=== PATIENT | female | born 1960 | race Caucasian/White ===

== ENCOUNTER 2021-09-04 06:12 | Inpatient (IN) ==
[~2021-09-04 06:12] MED LIST: Aspirin 81 MG TAB.CHEW PO ONE; Buckersberg's Blood Cardioplegia PF SCH; Heparin 15,000 UNIT in 0.9 % Sodium Chloride 500 ML IV ONE; Norepinephrine 4 MG in 0.9 % Sodium Chloride 250 ML IVC PRN; del Nido Cardioplegia Solution PF ONE; del Nido Cardioplegia Solution PF SCH
[2021-09-04] MEDS ORDERED: NiCARdipine 2.5 MG/10 ML Syringe IVPB ONE (06:21)
[2021-09-04] MEDS ORDERED: Chlorhexidine Rinse 15 ML MOUTHWASH MM SCH (06:24)
[2021-09-04] MEDS ORDERED: CeFAZolin Syr 2,000MG/20 ML 2,000 MG/20 ML SYRINGE IVPB ONE (06:24)
[2021-09-04] MEDS ORDERED: *HR* Rocuronium Bromide 50 MG/5 ML VIAL ONE (06:26)
[2021-09-04] MEDS ORDERED: niCARdipine 20 MG/200 ML MLS IVC ONE (06:26)
[2021-09-04] MEDS ORDERED: EPINEPHrine 1 MG/ML VIAL ONE (06:27)
[2021-09-04] MEDS ORDERED: Tranexamic Acid 1,000 MG/10 ML VIAL ONE (06:27)
[2021-09-04] MEDS ORDERED: *HR* Etomidate 20 MG/10 ML AMPUL IVP ONE (06:27)
[2021-09-04] MEDS ORDERED: Protamine Sulfate 250 MG/25 ML VIAL IVP ONE (06:27)
[2021-09-04] MEDS ORDERED: *HR* FentaNYL (PF) 1,000 MCG/20 ML VIAL ONE (06:28)
[2021-09-04] MEDS ORDERED: *HR* Midazolam HCl 5 MG/5 ML VIAL IVP ONE (06:28)
[2021-09-04] MEDS ORDERED: Ringers Solution, Lactated 1,000 ML IVC SCH (06:30)
[2021-09-04] MEDS ORDERED: Papaverine 60 MG/2 ML VIAL IVP ONE (06:31)
[2021-09-04 08:21] LABS: ABG Base Excess 2 mEq/L (-2 to 3); ABG Chloride 105 mEq/L (98-107); ABG Glucose 113 mg/dL (60-95); ABG HCO3 30 mEq/L (21-27); ABG Ionized Calcium 1.21 mmol/L (1.15-1.35); ABG Oxygen Saturation 100 % (95-98); ABG PCO2 61 mmHg (35-45); ABG PO2 377 mmHg (85-104); ABG TCO2 32 mEq/L (20-26)
[2021-09-04 08:49] LABS: ABG Base Excess 1 mEq/L (-2 to 3); ABG Chloride 105 mEq/L (98-107); ABG Glucose 120 mg/dL (60-95); ABG HCO3 24 mEq/L (21-27); ABG Oxygen Saturation 100 % (95-98); ABG PCO2 34 mmHg (35-45); ABG PH 7.46 pH Units (7.32-7.45); ABG PO2 264 mmHg (85-104); ABG TCO2 26 mEq/L (20-26)
[2021-09-04 09:22] LABS: ABG Base Excess 1 mEq/L (-2 to 3); ABG Chloride 101 mEq/L (98-107); ABG Glucose 164 mg/dL (60-95); ABG HCO3 25 mEq/L (21-27); ABG Ionized Calcium 0.96 mmol/L (1.15-1.35); ABG Oxygen Saturation 100 % (95-98); ABG PCO2 34 mmHg (35-45); ABG PH 7.47 pH Units (7.32-7.45); ABG PO2 600 mmHg (85-104); ABG TCO2 26 mEq/L (20-26)
[2021-09-04 09:38] LABS: ABG Base Excess -1 mEq/L (-2 to 3); ABG Chloride 100 mEq/L (98-107); ABG Glucose 136 mg/dL (60-95); ABG HCO3 23 mEq/L (21-27); ABG Ionized Calcium 0.92 mmol/L (1.15-1.35); ABG PCO2 32 mmHg (35-45); ABG PH 7.45 pH Units (7.32-7.45); ABG PO2 > 630 mmHg (85-104); ABG TCO2 24 mEq/L (20-26)
[2021-09-04 09:47] LABS: ABG Base Excess 0 mEq/L (-2 to 3); ABG Chloride 101 mEq/L (98-107); ABG Glucose 185 mg/dL (60-95); ABG HCO3 24 mEq/L (21-27); ABG Ionized Calcium 1.01 mmol/L (1.15-1.35); ABG Oxygen Saturation 100 % (95-98); ABG PCO2 38 mmHg (35-45); ABG PH 7.42 pH Units (7.32-7.45); ABG PO2 538 mmHg (85-104); ABG TCO2 26 mEq/L (20-26)
[2021-09-04 10:13] LABS: ABG Base Excess -1 mEq/L (-2 to 3); ABG Chloride 102 mEq/L (98-107); ABG Glucose 173 mg/dL (60-95); ABG HCO3 24 mEq/L (21-27); ABG Ionized Calcium 0.97 mmol/L (1.15-1.35); ABG Oxygen Saturation 100 % (95-98); ABG PCO2 39 mmHg (35-45); ABG PO2 597 mmHg (85-104); ABG TCO2 26 mEq/L (20-26)
[2021-09-04 10:47] LABS: ABG Base Excess -1 mEq/L (-2 to 3); ABG Chloride 103 mEq/L (98-107); ABG Glucose 164 mg/dL (60-95); ABG HCO3 23 mEq/L (21-27); ABG Ionized Calcium 1.73 mmol/L (1.15-1.35); ABG Oxygen Saturation 100 % (95-98); ABG PCO2 34 mmHg (35-45); ABG PH 7.43 pH Units (7.32-7.45); ABG PO2 573 mmHg (85-104); ABG TCO2 24 mEq/L (20-26)
[2021-09-04] MEDS ORDERED: Protamine Sulfate 50 MG/5 ML VIAL IVP ONE (10:50)
[2021-09-04] MEDS ORDERED: Amiodarone Premix 360 MG/200 ML BAG IVC ONE (11:43)
[2021-09-04] MEDS ORDERED: Potassium Chloride 40 MEQ/200 ML BAG IVPB PRN (11:43)
[2021-09-04] MEDS ORDERED: *HR* Dextrose 50 % in Water (Syg) 50 ML SYRINGE IVP PRN (11:43)
[2021-09-04] MEDS ORDERED: Calcium Gluconate 1gm/50mL 1 GM/50 ML BAG IVPB PRN (11:43)
[2021-09-04] MEDS ORDERED: Acetaminophen 325 MG TABLET PO PRN (11:43)
[2021-09-04] MEDS ORDERED: Insulin Regular, Human 100 UNIT/ML IV PRN (11:43)
[2021-09-04] MEDS ORDERED: Ondansetron 4 MG/2 ML VIAL IVP PRN (11:43)
[2021-09-04] MEDS ORDERED: Naloxone 0.4 MG/ML INJ IVP PRN (11:43)
[2021-09-04 12:12] LABS: ABG Base Excess -1 mEq/L (-2 to 3); ABG HCO3 23 mEq/L (21-27); ABG Oxygen Saturation 97 % (95-98); ABG PCO2 35 mmHg (35-45); ABG PH 7.42 pH Units (7.32-7.45); ABG PO2 90 mmHg (85-104); ABG TCO2 24 mEq/L (20-26); Blood Gas VT 450 cc
[2021-09-04 12:14] LABS: ABG Base Excess -3 mEq/L (-2 to 3); ABG Chloride 104 mEq/L (98-107); ABG Glucose 172 mg/dL (60-95); ABG HCO3 21 mEq/L (21-27); ABG Ionized Calcium 1.32 mmol/L (1.15-1.35); ABG Oxygen Saturation 100 % (95-98); ABG PCO2 32 mmHg (35-45); ABG PH 7.43 pH Units (7.32-7.45); ABG PO2 190 mmHg (85-104); ABG TCO2 22 mEq/L (20-26)
[2021-09-04 12:18] LABS: Basophils # 0.1 K/mcL (0.0-0.2); Basophils % 0.4 %; Eosinophils % 4.9 %; Hematocrit 33.7 % (35.3-44.9); Hemoglobin 11.3 g/dL (11.5-15.4); Immature Granulocytes % 0.6 % (0-4); Lymphocytes # 2.3 K/mcL (0.6-4.6); Lymphocytes % 11.1 %; Mean Corpuscular HGB Conc 33.5 g/dL (31.6-35.5); Mean Corpuscular Hemoglobin 28.8 pg (28.0-33.3); Monocytes # 0.8 K/mcL (0.0-1.3); Platelet Count 141 K/mcL (140-400); Red Blood Count 3.92 M/mcL (3.82-4.97); Red Cell Distribution Width 13.3 % (11.5-14.5)
[2021-09-04 12:25] LABS: White Blood Count 20.3 K/mcL (4.3-11.1)
[2021-09-04 12:26] LABS: INR 1.3; Prothrombin Time 14.9 Seconds (9.4-12.1)
[2021-09-04 12:29] LABS: Activated Partial Thrombo Time 29.7 Seconds (26.0-36.0)
[2021-09-04 12:38] LABS: BUN/Creatinine Ratio 14 (6-26); Blood Urea Nitrogen 10 mg/dL (6-20); Calcium 8.8 mg/dL (8.6-10.3); Carbon Dioxide 24 mEq/L (23-29); Chloride 108 mEq/L (98-107); Glucose 120 mg/dL (70-105); Osmolality,Calculated 290 (280-300); Potassium 3.1 mEq/L (3.5-5.1); Sodium 140 mEq/L (136-145); eGFR For African Americans > 60 (> 60); eGFR For Non-African Americans > 60 (> 60)
[2021-09-04] MEDS ORDERED: *HR* Phenylephrine 10 MG/ML VIAL IVC ONE (12:43)
[2021-09-04] MEDS ORDERED: Albumin Human 25% 25 GM/100 ML IV.SOLN IVPB ONE (12:43)
[2021-09-04] MEDS ORDERED: Lidocaine 2% Syringe 100 MG/5 ML IVP ONE (12:43)
[2021-09-04] MEDS ORDERED: D5% in Water 250 ML IV BAG IV ONE (12:43)
[2021-09-04] MEDS ORDERED: Tranexamic Acid 1,000 MG/10 ML VIAL IR ONE (12:43)
[2021-09-04] MEDS ORDERED: Heparin 1,000 UNITS/500 mL IV.SOLN IR ONE (12:43)
[2021-09-04] MEDS ORDERED: *HR* Heparin 10,000 UNIT/10 ML VIAL IR ONE (12:43)
[2021-09-04] MEDS ORDERED: Mannitol 25% vial 12.5 GM/50 ML VIAL IVPB ONE (12:43)
[2021-09-04] MEDS ORDERED: *HR* Magnesium Sulfate 2 GM/50 ML PIGGYBACK IVPB ONE (12:43)
[2021-09-04] MEDS ORDERED: *HR* Metoprolol 5 MG/5 ML VIAL IVP ONE (13:10)
[2021-09-04] MEDS: Pantoprazole 40 MG VIAL IVP SCH (13:17)
[2021-09-04] MEDS: *HR* FentaNYL (PF) 100 MCG/2 ML VIAL IVP PRN ×5 (13:36→23:03)
[2021-09-04] MEDS: Norepinephrine 4 MG/254 ML IV.SOLN IVC SCH ×6 (16:00→22:55)
[2021-09-04] MEDS: Albumin Human 5% 12.5 GM/250 ML IV.SOLN IVPB PRN ×5 (16:01→21:18)
[2021-09-04] MEDS: CeFAZolin 2 GM/120 ML BAG IVPB SCH ×2 (16:43→23:43)
[2021-09-04 16:53] LABS: ABG Base Excess -2 mEq/L (-2 to 3); ABG HCO3 25 mEq/L (21-27); ABG Oxygen Saturation 96 % (95-98); ABG PCO2 52 mmHg (35-45); ABG PH 7.29 pH Units (7.32-7.45); ABG PO2 96 mmHg (85-104); ABG TCO2 27 mEq/L (20-26); Blood Gas VT 450 cc
[2021-09-04] MEDS ORDERED: Amiodarone Premix 360 MG/200 ML BAG IVC SCH (17:09)
[2021-09-04 17:57] LABS: ABG Base Excess -2 mEq/L (-2 to 3); ABG HCO3 23 mEq/L (21-27); ABG Oxygen Saturation 100 % (95-98); ABG PCO2 36 mmHg (35-45); ABG PH 7.41 pH Units (7.32-7.45); ABG PO2 193 mmHg (85-104); ABG TCO2 24 mEq/L (20-26); Blood Gas VT 500 cc
[2021-09-04] MEDS ORDERED: Ipratropium/Albuterol Neb 3 ML IH PRN (18:14)
[2021-09-04 18:55] LABS: ABG Base Excess -1 mEq/L (-2 to 3); ABG HCO3 24 mEq/L (21-27); ABG Oxygen Saturation 98 % (95-98); ABG PCO2 44 mmHg (35-45); ABG PH 7.35 pH Units (7.32-7.45); ABG PO2 114 mmHg (85-104); ABG TCO2 26 mEq/L (20-26); Blood Gas Modality CPAP/PS; Blood Gas Pressure Support 10 cm H2O
[2021-09-04] MEDS: DOBUTamine 1,000 MG/250 ML BAG IVC SCH (19:39)
[2021-09-04] MEDS: niCARdipine 20 MG/200 ML MLS IVC SCH ×2 (19:39→19:53)
[2021-09-04 19:52] LABS: ABG Base Excess -1 mEq/L (-2 to 3); ABG HCO3 25 mEq/L (21-27); ABG Oxygen Saturation 92 % (95-98); ABG PCO2 45 mmHg (35-45); ABG PH 7.35 pH Units (7.32-7.45); ABG PO2 68 mmHg (85-104); ABG TCO2 26 mEq/L (20-26)
[2021-09-04] MEDS: *HR* OxyCODONE/APAP 5/325 TABLET PO PRN (20:54)
[2021-09-04] MEDS: Ipratropium/Albuterol Neb 3 ML IH SCH ×2 (21:15→23:27)
[2021-09-04] MEDS: Chlorhexidine Rinse 15 ML MOUTHWASH MM SCH (21:23)
[2021-09-05] MEDS: Norepinephrine 4 MG/254 ML IV.SOLN IVC SCH ×12 (00:20→22:04)
[2021-09-05] MEDS: *HR* OxyCODONE/APAP 5/325 TABLET PO PRN ×3 (01:13→19:42)
[2021-09-05] MEDS: Ipratropium/Albuterol Neb 3 ML IH SCH ×5 (03:51→20:29)
[2021-09-05 04:29] LABS: Basophils % 0.3 %; Eosinophils # 0.2 K/mcL (0.0-0.6); Eosinophils % 1.4 %; Hematocrit 29.3 % (35.3-44.9); Immature Granulocytes % 0.5 % (0-4); Lymphocytes # 1.7 K/mcL (0.6-4.6); Lymphocytes % 12.2 %; Mean Corpuscular HGB Conc 31.4 g/dL (31.6-35.5); Mean Corpuscular Hemoglobin 28.8 pg (28.0-33.3); Mean Corpuscular Volume 91.8 fL (83.0-100.0); Monocytes # 1.4 K/mcL (0.0-1.3); Monocytes % 9.7 %; Neutrophils # 10.5 K/mcL (1.6-8.9); Platelet Count 164 K/mcL (140-400); Red Blood Count 3.19 M/mcL (3.82-4.97); Red Cell Distribution Width 14.2 % (11.5-14.5); Segmented Neutrophils % 75.9 %; White Blood Count 13.9 K/mcL (4.3-11.1)
[2021-09-05 04:30] LABS: Hemoglobin 9.2 g/dL (11.5-15.4)
[2021-09-05] MEDS: niCARdipine 20 MG/200 ML MLS IVC SCH ×2 (04:43→11:14)
[2021-09-05 04:44] LABS: INR 1.4; Prothrombin Time 15.3 Seconds (9.4-12.1)
[2021-09-05 04:47] LABS: Activated Partial Thrombo Time 31.8 Seconds (26.0-36.0)
[2021-09-05 05:09] LABS: BUN/Creatinine Ratio 13 (6-26); Blood Urea Nitrogen 13 mg/dL (6-20); Calcium 8.3 mg/dL (8.6-10.3); Carbon Dioxide 24 mEq/L (23-29); Chloride 110 mEq/L (98-107); Glucose 135 mg/dL (70-105); Magnesium 2.5 mg/dL (1.6-2.6); Osmolality,Calculated 296 (280-300); Potassium 3.7 mEq/L (3.5-5.1); Sodium 142 mEq/L (136-145); eGFR For African Americans > 60 (> 60); eGFR For Non-African Americans 59 (> 60)
[2021-09-05] MEDS ORDERED: *HR* Heparin 5,000 UNIT/ML VIAL SQ SCH (06:00)
[2021-09-05] MEDS: Chlorhexidine Rinse 15 ML MOUTHWASH MM SCH ×2 (07:33→19:42)
[2021-09-05] MEDS: Pantoprazole 40 MG VIAL IVP SCH (08:14)
[2021-09-05] MEDS: CeFAZolin 2 GM/120 ML BAG IVPB SCH ×2 (08:20→19:02)
[2021-09-05] MEDS ORDERED: Furosemide 40 MG/4 ML VIAL IVP ONE (08:25)
[2021-09-05] MEDS ORDERED: Ketorolac 30 MG/ML VIAL IVP PRN ×2 (08:46→12:30)
[2021-09-05] MEDS ORDERED: Aspirin Enteric Coated 81 MG Tablet PO SCH (09:00)
[2021-09-05] MEDS: DOBUTamine 1,000 MG/250 ML BAG IVC SCH ×2 (11:14→13:11)
[2021-09-05] MEDS ORDERED: Albumin Human 5% 12.5 GM/250 ML IV.SOLN IVPB PRN (12:30)
[2021-09-05] MEDS ORDERED: Naloxone 0.4 MG/ML INJ IVP PRN (12:30)
[2021-09-05] MEDS ORDERED: Acetaminophen 325 MG TABLET PO PRN (12:30)
[2021-09-05] MEDS ORDERED: Ipratropium/Albuterol Neb 3 ML IH PRN (12:30)
[2021-09-05] MEDS ORDERED: *HR* Dextrose 50 % in Water (Syg) 50 ML SYRINGE IVP PRN (12:30)
[2021-09-05] MEDS ORDERED: Insulin Regular, Human 100 UNIT/ML IV PRN (12:30)
[2021-09-05] MEDS ORDERED: Ondansetron 4 MG/2 ML VIAL IVP PRN (12:30)
[2021-09-05] MEDS ORDERED: Calcium Gluconate 1gm/50mL 1 GM/50 ML BAG IVPB PRN (12:30)
[2021-09-05] MEDS ORDERED: Heparin 1,000 UNITS/500 mL 500 ML ONE (15:21)
[2021-09-05] MEDS: *HR* Heparin 5,000 UNIT/ML VIAL SQ SCH (19:02)
[2021-09-06] MEDS: CeFAZolin 2 GM/120 ML BAG IVPB SCH ×3 (00:10→16:22)
[2021-09-06] MEDS: Ipratropium/Albuterol Neb 3 ML IH SCH ×7 (00:29→23:57)
[2021-09-06] MEDS: *HR* OxyCODONE/APAP 5/325 TABLET PO PRN ×3 (02:48→12:36)
[2021-09-06 05:00] LABS: Basophils # 0.1 K/mcL (0.0-0.2); Basophils % 0.3 %; Eosinophils # 0.2 K/mcL (0.0-0.6); Hematocrit 26.8 % (35.3-44.9); Hemoglobin 8.7 g/dL (11.5-15.4); Immature Granulocytes % 0.7 % (0-4); Lymphocytes # 1.7 K/mcL (0.6-4.6); Lymphocytes % 7.9 %; Mean Corpuscular HGB Conc 32.5 g/dL (31.6-35.5); Mean Corpuscular Hemoglobin 29.1 pg (28.0-33.3); Mean Corpuscular Volume 89.6 fL (83.0-100.0); Mean Platelet Volume 9.8 fL (9.4-12.4); Monocytes # 1.4 K/mcL (0.0-1.3); Monocytes % 6.5 %; Platelet Count 188 K/mcL (140-400); Red Blood Count 2.99 M/mcL (3.82-4.97); Red Cell Distribution Width 14.5 % (11.5-14.5); Segmented Neutrophils % 83.6 %
[2021-09-06 05:01] LABS: Neutrophils # 17.6 K/mcL (1.6-8.9)
[2021-09-06 05:29] LABS: BUN/Creatinine Ratio 18 (6-26); Blood Urea Nitrogen 15 mg/dL (6-20); Calcium 8.6 mg/dL (8.6-10.3); Carbon Dioxide 23 mEq/L (23-29); Chloride 106 mEq/L (98-107); Glucose 136 mg/dL (70-105); Osmolality,Calculated 291 (280-300); Potassium 3.4 mEq/L (3.5-5.1); Sodium 139 mEq/L (136-145); eGFR For African Americans > 60 (> 60); eGFR For Non-African Americans > 60 (> 60)
[2021-09-06] MEDS: Norepinephrine 4 MG/254 ML IV.SOLN IVC SCH ×2 (05:51→13:38)
[2021-09-06] MEDS: *HR* Heparin 5,000 UNIT/ML VIAL SQ SCH ×2 (05:51→16:21)
[2021-09-06] MEDS: Aspirin Enteric Coated 81 MG Tablet PO SCH (08:16)
[2021-09-06] MEDS: Chlorhexidine Rinse 15 ML MOUTHWASH MM SCH ×2 (08:17→21:08)
[2021-09-06] MEDS ORDERED: Gabapentin 100 MG CAPSULE PO ONE (08:57)
[2021-09-06] MEDS ORDERED: Pantoprazole 40 MG VIAL IVP SCH (09:00)
[2021-09-06] MEDS: DOBUTamine 1,000 MG/250 ML BAG IVC SCH (11:30)
[2021-09-06] MEDS: Furosemide 40 MG/4 ML VIAL IVP SCH (13:39)
[2021-09-06] MEDS: Gabapentin 100 MG CAPSULE PO SCH ×2 (15:21→21:07)
[2021-09-06] MEDS: Budesonide/Formoterol 160/4.5 1 PUFF INH IH SCH (20:33)
[2021-09-07 03:54] LABS: Basophils # 0.1 K/mcL (0.0-0.2); Basophils % 0.4 %; Eosinophils # 0.2 K/mcL (0.0-0.6); Hematocrit 23.8 % (35.3-44.9); Hemoglobin 7.7 g/dL (11.5-15.4); Immature Granulocytes % 1.3 % (0-4); Lymphocytes # 2.3 K/mcL (0.6-4.6); Lymphocytes % 12.9 %; Mean Corpuscular HGB Conc 32.4 g/dL (31.6-35.5); Mean Corpuscular Hemoglobin 29.6 pg (28.0-33.3); Mean Corpuscular Volume 91.5 fL (83.0-100.0); Mean Platelet Volume 10.4 fL (9.4-12.4); Monocytes % 5.6 %; Neutrophils # 14.3 K/mcL (1.6-8.9); Nucleated Red Blood Cells 0.2 /100 WBC (0); Platelet Count 192 K/mcL (140-400); Red Cell Distribution Width 14.7 % (11.5-14.5); Segmented Neutrophils % 78.8 %; White Blood Count 18.2 K/mcL (4.3-11.1)
[2021-09-07] MEDS: Ipratropium/Albuterol Neb 3 ML IH SCH ×6 (04:03→23:31)
[2021-09-07 04:14] LABS: BUN/Creatinine Ratio 23 (6-26); Blood Urea Nitrogen 21 mg/dL (6-20); Calcium 8.5 mg/dL (8.6-10.3); Carbon Dioxide 27 mEq/L (23-29); Chloride 101 mEq/L (98-107); Glucose 132 mg/dL (70-105); Osmolality,Calculated 283 (280-300); Potassium 3.9 mEq/L (3.5-5.1); Sodium 134 mEq/L (136-145); eGFR For African Americans > 60 (> 60); eGFR For Non-African Americans > 60 (> 60)
[2021-09-07 04:36] LABS: Ferritin 222 ng/mL (10-120); Iron < 10 mcg/dL (50-170); Magnesium 2.3 mg/dL (1.6-2.6); Phosphorous 2.7 mg/dL (2.7-4.5); Transferrin 181 mg/dL (203-362)
[2021-09-07 04:52] LABS: Folate 13.7 ng/mL (3.0-16.0)
[2021-09-07] MEDS: *HR* Heparin 5,000 UNIT/ML VIAL SQ SCH ×3 (05:18→21:45)
[2021-09-07] MEDS: *HR* OxyCODONE/APAP 5/325 TABLET PO PRN ×2 (07:12→14:16)
[2021-09-07] MEDS ORDERED: Iron Sucrose Complex 400 MG in 0.9 % Sodium Chloride 250 ML IVPB ONE (07:14)
[2021-09-07] MEDS: Budesonide/Formoterol 160/4.5 1 PUFF INH IH SCH ×2 (07:42→20:31)
[2021-09-07] MEDS ORDERED: 0.9 % Sodium Chloride 250 ML ONE (08:05)
[2021-09-07] MEDS: Aspirin Enteric Coated 81 MG Tablet PO SCH (08:08)
[2021-09-07] MEDS: Multivit/Ca/Min/Fe/FA 1 TAB TABLET PO SCH (08:08)
[2021-09-07] MEDS: Gabapentin 100 MG CAPSULE PO SCH ×3 (08:08→23:07)
[2021-09-07] MEDS: Chlorhexidine Rinse 15 ML MOUTHWASH MM SCH ×2 (08:09→23:06)
[2021-09-07] MEDS: Calcium Gluconate 1gm/50mL 1 GM/50 ML BAG IVPB SCH ×2 (10:26→11:30)
[2021-09-07] MEDS: Furosemide 40 MG/4 ML VIAL IVP SCH ×3 (10:27→23:07)
[2021-09-07] MEDS: DOBUTamine 1,000 MG/250 ML BAG IVC SCH (11:31)
[2021-09-07] MEDS: Norepinephrine 4 MG/254 ML IV.SOLN IVC SCH (11:32)
[2021-09-07 13:50] LABS: Hematocrit 29.2 % (35.3-44.9)
[2021-09-07 13:51] LABS: Hemoglobin 9.5 g/dL (11.5-15.4)
[2021-09-07] MEDS ORDERED: Furosemide 40 MG/4 ML VIAL IVP ONE (15:00)
[2021-09-07] MEDS ORDERED: Perflutren Lipid Microsphere 1.3 ML in 0.9 % Sodium Chloride 8.7 ML IVP PRN (15:04)
[2021-09-07] MEDS ORDERED: MethylPREDNISolone 40 MG/ML VIAL IVP ONE (15:11)
[2021-09-07] MEDS ORDERED: methylPREDNISolone 125 MG/2 ML VIAL IVP ONE (15:13)
[2021-09-07 15:21] LABS: ABG Base Excess 2 mEq/L (-2 to 3); ABG HCO3 27 mEq/L (21-27); ABG Oxygen Saturation 67 % (95-98); ABG PCO2 44 mmHg (35-45); ABG PO2 35 mmHg (85-104); ABG TCO2 29 mEq/L (20-26)
[2021-09-07 21:17] LABS: ABG Base Excess 2 mEq/L (-2 to 3); ABG HCO3 26 mEq/L (21-27); ABG Oxygen Saturation 97 % (95-98); ABG PCO2 39 mmHg (35-45); ABG PH 7.44 pH Units (7.32-7.45); ABG PO2 91 mmHg (85-104); ABG TCO2 28 mEq/L (20-26)
[2021-09-08 03:28] LABS: Basophils % 0.1 %; Hematocrit 27.2 % (35.3-44.9); Hemoglobin 8.8 g/dL (11.5-15.4); Immature Granulocytes % 1.3 % (0-4); Lymphocytes # 1.3 K/mcL (0.6-4.6); Lymphocytes % 8.5 %; Mean Corpuscular HGB Conc 32.4 g/dL (31.6-35.5); Mean Corpuscular Volume 89.8 fL (83.0-100.0); Mean Platelet Volume 10.2 fL (9.4-12.4); Monocytes # 1.2 K/mcL (0.0-1.3); Monocytes % 7.8 %; Neutrophils # 12.9 K/mcL (1.6-8.9); Nucleated Red Blood Cells 0.8 /100 WBC (0); Platelet Count 235 K/mcL (140-400); Red Blood Count 3.03 M/mcL (3.82-4.97); Red Cell Distribution Width 14.4 % (11.5-14.5); Segmented Neutrophils % 82.3 %; White Blood Count 15.7 K/mcL (4.3-11.1)
[2021-09-08 03:47] LABS: BUN/Creatinine Ratio 32 (6-26); Blood Urea Nitrogen 28 mg/dL (6-20); Calcium 8.5 mg/dL (8.6-10.3); Carbon Dioxide 30 mEq/L (23-29); Chloride 100 mEq/L (98-107); Glucose 152 mg/dL (70-105); Osmolality,Calculated 292 (280-300); Potassium 3.7 mEq/L (3.5-5.1); Sodium 137 mEq/L (136-145); eGFR For African Americans > 60 (> 60); eGFR For Non-African Americans > 60 (> 60)
[2021-09-08 03:48] LABS: Magnesium 2.4 mg/dL (1.6-2.6)
[2021-09-08] MEDS: Ipratropium/Albuterol Neb 3 ML IH SCH ×6 (04:34→23:34)
[2021-09-08] MEDS: *HR* Heparin 5,000 UNIT/ML VIAL SQ SCH ×3 (06:11→21:40)
[2021-09-08] MEDS ORDERED: MethylPREDNISolone 40 MG/ML VIAL IVP SCH (08:00)
[2021-09-08] MEDS: Chlorhexidine Rinse 15 ML MOUTHWASH MM SCH ×2 (08:06→19:56)
[2021-09-08] MEDS: Furosemide 40 MG/4 ML VIAL IVP SCH ×2 (08:06→19:59)
[2021-09-08] MEDS: Aspirin Enteric Coated 81 MG Tablet PO SCH (08:06)
[2021-09-08] MEDS: Multivit/Ca/Min/Fe/FA 1 TAB TABLET PO SCH (08:07)
[2021-09-08] MEDS: Gabapentin 100 MG CAPSULE PO SCH ×3 (08:09→19:57)
[2021-09-08] MEDS: Budesonide/Formoterol 160/4.5 1 PUFF INH IH SCH ×2 (08:22→19:47)
[2021-09-08] MEDS: Norepinephrine 4 MG/254 ML IV.SOLN IVC SCH (11:13)
[2021-09-08] MEDS: DOBUTamine 1,000 MG/250 ML BAG IVC SCH (11:13)
[2021-09-08] MEDS ORDERED: Ipratropium/Albuterol Neb 3 ML IH PRN (15:41)
[2021-09-08] MEDS ORDERED: Perflutren Lipid Microsphere 1.3 ML in 0.9 % Sodium Chloride 8.7 ML IVP PRN (15:41)
[2021-09-08] MEDS ORDERED: *HR* Dextrose 50 % in Water (Syg) 50 ML SYRINGE IVP PRN (15:41)
[2021-09-08] MEDS ORDERED: Ondansetron 4 MG/2 ML VIAL IVP PRN (15:41)
[2021-09-08] MEDS ORDERED: Insulin Regular, Human 100 UNIT/ML IV PRN (15:41)
[2021-09-08] MEDS: Acetaminophen 325 MG TABLET PO PRN (19:57)
[2021-09-09 04:08] LABS: Basophils % 0.2 %; Eosinophils % 0.1 %; Hematocrit 27.2 % (35.3-44.9); Hemoglobin 8.7 g/dL (11.5-15.4); Immature Granulocytes % 2.1 % (0-4); Lymphocytes % 12.6 %; Mean Corpuscular Hemoglobin 29.3 pg (28.0-33.3); Mean Corpuscular Volume 91.6 fL (83.0-100.0); Mean Platelet Volume 10.1 fL (9.4-12.4); Monocytes # 1.7 K/mcL (0.0-1.3); Monocytes % 10.2 %; Neutrophils # 12.1 K/mcL (1.6-8.9); Nucleated Red Blood Cells 1.1 /100 WBC (0); Platelet Count 273 K/mcL (140-400); Red Blood Count 2.97 M/mcL (3.82-4.97); Red Cell Distribution Width 14.4 % (11.5-14.5); Segmented Neutrophils % 74.8 %; White Blood Count 16.2 K/mcL (4.3-11.1)
[2021-09-09] MEDS: Ipratropium/Albuterol Neb 3 ML IH SCH ×6 (04:21→23:39)
[2021-09-09 04:23] LABS: BUN/Creatinine Ratio 33 (6-26); Blood Urea Nitrogen 30 mg/dL (6-20); Calcium 8.5 mg/dL (8.6-10.3); Carbon Dioxide 31 mEq/L (23-29); Chloride 101 mEq/L (98-107); Glucose 144 mg/dL (70-105); Magnesium 2.4 mg/dL (1.6-2.6); Osmolality,Calculated 297 (280-300); Potassium 3.1 mEq/L (3.5-5.1); Sodium 139 mEq/L (136-145); eGFR For African Americans > 60 (> 60); eGFR For Non-African Americans > 60 (> 60)
[2021-09-09] MEDS: *HR* Heparin 5,000 UNIT/ML VIAL SQ SCH ×3 (05:24→20:29)
[2021-09-09] MEDS: Aspirin Enteric Coated 81 MG Tablet PO SCH (07:36)
[2021-09-09] MEDS: Multivit/Ca/Min/Fe/FA 1 TAB TABLET PO SCH (07:36)
[2021-09-09] MEDS: Gabapentin 100 MG CAPSULE PO SCH ×3 (07:36→20:30)
[2021-09-09] MEDS: Chlorhexidine Rinse 15 ML MOUTHWASH MM SCH ×2 (07:37→20:29)
[2021-09-09] MEDS: Furosemide 40 MG/4 ML VIAL IVP SCH ×2 (07:38→20:29)
[2021-09-09] MEDS: Budesonide/Formoterol 160/4.5 1 PUFF INH IH SCH ×2 (08:15→19:56)
[2021-09-09] MEDS ORDERED: MethylPREDNISolone 40 MG/ML VIAL IVP SCH ×2 (09:00)
[2021-09-09] MEDS: Potassium Chloride Elixir 20 MEQ/15 ML UDC PO SCH ×2 (12:07→20:28)
[2021-09-10] MEDS: Ipratropium/Albuterol Neb 3 ML IH SCH ×6 (04:08→23:32)
[2021-09-10 04:19] LABS: Basophils % 0.2 %; Eosinophils # 0.1 K/mcL (0.0-0.6); Eosinophils % 0.3 %; Hematocrit 28.7 % (35.3-44.9); Hemoglobin 8.9 g/dL (11.5-15.4); Immature Granulocytes % 2.5 % (0-4); Lymphocytes # 2.6 K/mcL (0.6-4.6); Mean Corpuscular Volume 93.5 fL (83.0-100.0); Monocytes # 1.8 K/mcL (0.0-1.3); Monocytes % 12.1 %; Neutrophils # 10.3 K/mcL (1.6-8.9); Nucleated Red Blood Cells 1.3 /100 WBC (0); Platelet Count 322 K/mcL (140-400); Red Blood Count 3.07 M/mcL (3.82-4.97); Red Cell Distribution Width 14.5 % (11.5-14.5); Segmented Neutrophils % 67.9 %; White Blood Count 15.2 K/mcL (4.3-11.1)
[2021-09-10 04:36] LABS: BUN/Creatinine Ratio 30 (6-26); Blood Urea Nitrogen 22 mg/dL (6-20); Calcium 7.3 mg/dL (8.6-10.3); Carbon Dioxide 27 mEq/L (23-29); Chloride 106 mEq/L (98-107); Glucose 96 mg/dL (70-105); Osmolality,Calculated 293 (280-300); Potassium 3.7 mEq/L (3.5-5.1); Sodium 140 mEq/L (136-145); eGFR For African Americans > 60 (> 60); eGFR For Non-African Americans > 60 (> 60)
[2021-09-10] MEDS: *HR* Heparin 5,000 UNIT/ML VIAL SQ SCH ×3 (05:58→20:49)
[2021-09-10] MEDS: Budesonide/Formoterol 160/4.5 1 PUFF INH IH SCH ×2 (08:13→19:46)
[2021-09-10] MEDS: Gabapentin 100 MG CAPSULE PO SCH ×3 (08:57→19:49)
[2021-09-10] MEDS: Multivit/Ca/Min/Fe/FA 1 TAB TABLET PO SCH (08:58)
[2021-09-10] MEDS: predniSONE 20 MG TABLET PO SCH (08:58)
[2021-09-10] MEDS: Aspirin Enteric Coated 81 MG Tablet PO SCH (08:58)
[2021-09-10] MEDS: Potassium Chloride Elixir 20 MEQ/15 ML UDC PO SCH ×2 (08:58→19:51)
[2021-09-10] MEDS: Chlorhexidine Rinse 15 ML MOUTHWASH MM SCH ×2 (08:59→19:51)
[2021-09-10] MEDS: Furosemide 40 MG/4 ML VIAL IVP SCH ×2 (08:59→19:50)
[2021-09-11] MEDS: Acetaminophen 325 MG TABLET PO PRN (00:12)
[2021-09-11] MEDS: Ipratropium/Albuterol Neb 3 ML IH SCH ×3 (04:11→11:58)
[2021-09-11 05:04] LABS: Basophils # 0.1 K/mcL (0.0-0.2); Basophils % 0.3 %; Eosinophils % 0.2 %; Hematocrit 30.6 % (35.3-44.9); Hemoglobin 9.8 g/dL (11.5-15.4); Immature Granulocytes % 3.7 % (0-4); Lymphocytes # 2.2 K/mcL (0.6-4.6); Lymphocytes % 13.1 %; Mean Corpuscular Hemoglobin 29.8 pg (28.0-33.3); Mean Platelet Volume 9.6 fL (9.4-12.4); Monocytes # 1.7 K/mcL (0.0-1.3); Monocytes % 10.2 %; Neutrophils # 12.4 K/mcL (1.6-8.9); Nucleated Red Blood Cells 0.6 /100 WBC (0); Platelet Count 392 K/mcL (140-400); Red Blood Count 3.29 M/mcL (3.82-4.97); Red Cell Distribution Width 15.1 % (11.5-14.5); Segmented Neutrophils % 72.5 %; White Blood Count 17.1 K/mcL (4.3-11.1)
[2021-09-11 05:26] LABS: BUN/Creatinine Ratio 25 (6-26); Blood Urea Nitrogen 21 mg/dL (6-20); Calcium 8.8 mg/dL (8.6-10.3); Carbon Dioxide 31 mEq/L (23-29); Chloride 99 mEq/L (98-107); Glucose 131 mg/dL (70-105); Osmolality,Calculated 293 (280-300); Potassium 3.8 mEq/L (3.5-5.1); Sodium 139 mEq/L (136-145); eGFR For African Americans > 60 (> 60); eGFR For Non-African Americans > 60 (> 60)
[2021-09-11] MEDS: *HR* Heparin 5,000 UNIT/ML VIAL SQ SCH (05:33)
[2021-09-11] MEDS: Budesonide/Formoterol 160/4.5 1 PUFF INH IH SCH (07:40)
[2021-09-11] MEDS: Gabapentin 100 MG CAPSULE PO SCH (09:28)
[2021-09-11] MEDS: Chlorhexidine Rinse 15 ML MOUTHWASH MM SCH (09:28)
[2021-09-11] MEDS: predniSONE 20 MG TABLET PO SCH (09:29)
[2021-09-11] MEDS: Aspirin Enteric Coated 81 MG Tablet PO SCH (09:29)
[2021-09-11] MEDS: Multivit/Ca/Min/Fe/FA 1 TAB TABLET PO SCH (09:29)
[2021-09-11] MEDS: Furosemide 40 MG/4 ML VIAL IVP SCH (09:29)
[2021-09-11 11:17] VITALS: BP 112/62; PULSE 92; TEMP 98.2; O2SAT 98
== END 2021-09-11 14:02 | disposition home or self-care (01) | DRG 219 ==
LOC: SAMDAY 06:12 → ICNU 11:41 → 2NNU 09-05 10:06 → ICNU 09-07 21:55 → 2NNU 09-09 12:50
PROVIDERS: ADMIT Thoracic Surgery (Cardiothoracic Vascular Surgery); ATTEND Thoracic Surgery (Cardiothoracic Vascular Surgery)